=== PATIENT | female | born 1990 | race African-American/Black ===

== ENCOUNTER 2021-08-07 11:53 | Emergency (ER) | payer OTHER ==
[2021-08-07 12:17] VITALS: BP 109/58; PULSE 67; TEMP 98; BMI 15.9
[2021-08-07] MEDS ORDERED: KETOROLAC TROMETHAMINE 30 MG/1 ML VIAL IM ONE (12:37)
[2021-08-07] MEDS ORDERED: METHOCARBAMOL 500 MG TABLET PO ONE (12:37)
[2021-08-07] MEDS ORDERED: METHOCARBAMOL 500 MG TABLET ONE (12:41)
[2021-08-07] MEDS ORDERED: KETOROLAC TROMETHAMINE 30 MG/1 ML VIAL ONE (12:41)
== END 2021-08-07 13:13 | disposition home or self-care (01) ==
LOC: JER 11:53 → JERFT 11:53 → JER 13:13
PROC: 3E0233Z Introduction of Anti-inflammatory into Muscle, Percutaneous Approach (ICD-10-PCS; principal; 2021-08-07)
DX: M62.838 Other muscle spasm (principal)
CPT/HCPCS: 72050-TC-FY; 99284-25